=== PATIENT | female | born 1955 | race Caucasian/White ===

== ENCOUNTER 2019-04-12 10:59 | Emergency (ER) | payer MEDICARE, OTHER ==
[~2019-04-12] VITALS: Ht 157.5 cm; Wt 80.0 kg
[~2019-04-12 10:59] MED LIST: AMANTADINE100 MG PO; ASPIRIN EC81 MG PO; ASPIRIN LOW DOS81 M1 PO; AUGMENTIN500TAB PO; CIPRO500 MG PO; CIPROFLOXACIN250 MG PO; ESTRACE VAG0.1 MG/GM VA; FISH OIL500 MG PO; MEDDOSEPAK PO; MULTI VIT PO; NITROFURANTN100 M1 PO; NO; PLAVIX75 MG PO; PRILOSEC20 MG PO; PROTONIX40 M2 PO; REGLAN10 MG PO; ZANTAC 75 PO; ZPAK PO
[2019-04-12] MEDS ORDERED: PROTONIX40 M2 PO (11:32)
[2019-04-12] MEDS ORDERED: CYCLOBENZAPR5 MG PO (12:21)
[2019-04-12] MEDS ORDERED: VOLTAREN1%GEL TOP (12:21)
[2019-04-12 12:40] VITALS: BP 158/71
== END 2019-04-12 12:40 | disposition home or self-care (01) ==
LOC: ED 10:59
DX: M62.830 Muscle spasm of back (principal)

== ENCOUNTER 2019-07-22 | Emergency (ER) | payer MEDICARE, OTHER ==
[~2019-07-22] MED LIST changes: +CYCLOBENZAPR5 MG PO; +VOLTAREN1%GEL TOP
== END 2019-07-22 13:20 | disposition home or self-care (01) ==
DX: S92.512A Displaced fracture of proximal phalanx of left lesser toe(s), initial encounter for closed fracture (principal); S90.32XA Contusion of left foot, initial encounter; S90.02XA Contusion of left ankle, initial encounter; W22.8XXA Striking against or struck by other objects, initial encounter

== ENCOUNTER 2019-09-16 | Emergency (ER) | payer MEDICARE, OTHER ==
[2019-09-16] MEDS ORDERED: ASPIRIN 81 LOW81 MG PO (18:11)
[2019-09-16] MEDS ORDERED: ONDANSETRON4 MG PO (18:54)
== END 2019-09-16 19:34 | disposition home or self-care (01) ==
DX: Z03.89 Encounter for observation for other suspected diseases and conditions ruled out (principal); I10 Essential (primary) hypertension

== ENCOUNTER 2020-05-31 10:01 | Emergency (ER) | payer MEDICARE, OTHER ==
[~2020-05-31] VITALS: Ht 157.5 cm; Wt 86.4 kg
[~2020-05-31 10:01] MED LIST changes: +ASPIRIN 81 LOW81 MG PO; +ONDANSETRON4 MG PO
[2020-05-31] MEDS ORDERED: PROZAC20 MG PO (10:46)
[2020-05-31] MEDS ORDERED: HEART RATE MED (10:47)
[2020-05-31 12:04] VITALS: BP 176/82
== END 2020-05-31 12:10 | disposition home or self-care (01) ==
LOC: ED 10:01
DX: S93.401A Sprain of unspecified ligament of right ankle, initial encounter (principal); I10 Essential (primary) hypertension; X58.XXXA Exposure to other specified factors, initial encounter

== ENCOUNTER 2022-07-28 11:50 | Observation (INO) | payer MEDICARE, OTHER ==
[2022-07-28] VITALS (11 sets, daily range): BP systolic 122–161; BP diastolic 68–91
[~2022-07-28] VITALS: Ht 157.5 cm; Wt 87.0 kg
[~2022-07-28 11:50] MED LIST changes: +HEART RATE MED; +PROZAC20 MG PO
[2022-07-28 12:29] LABS: BASO% 0.3 % (0-3); EOS% 1.8 % (0-8); HEMATOCRIT 42.1 % (37.0-47.0); HEMOGLOBIN 14.1 g/dl (12.0-16.0); IMMATURE GRANULOCYTES 0.4 % (0.0-5.0); LYMPH% 48.9 % (15-41); MEAN CELL VOLUME 94.6 fL CALC (80.0-100.0); MEAN CORPUSCULAR HGB 31.7 pG CALC (26.0-32.0); MEAN CORPUSCULAR HGB CONC 33.5 g/dL CAL (32.0-36.0); MONO% 6.8 % (2-13); NEUT# 4.02 thou/uL (2.00-7.15); NEUT% 41.8 % (42-76); RED BLOOD COUNT 4.45 mill/uL (4.20-5.60); RED CELL DISTRI WIDTH 13.7 % (11.5-15.5)
[2022-07-28] MEDS ORDERED: NORVASC5 M1 PO (12:56)
[2022-07-28 13:24] LABS: ALBUMIN 4.8 g/dL (3.2-5.0); ALKALINE PHOSPHATASE 101 u/l (38-126); ANION GAP 11 (6-22 (CALC)); BILIRUBIN, TOTAL 0.3 mg/dL (0.0-1.4); BUN 12 mg/dL (8-23); BUN/CREATININE RATIO 17 (12-20 (CALC)); CARBON DIOXIDE 28 mmol/l (22-30); CHLORIDE 105 mmol/l (95-108); CREATININE 0.7 mg/dL (0.5-1.0); GFR FOR AFR.AMER. > 60 ML/MIN (>=60 (CALC)); GFR OTHER RACES > 60 ML/MIN (>=60 (CALC)); SGOT/AST 35 u/l (9-36); SODIUM 139 mmol/l (137-146)
[2022-07-28 13:25] LABS: TOTAL PROTEIN 8.4 g/dL (6.3-8.2)
[2022-07-29 04:02] VITALS: BP 134/63
[2022-07-29 06:55] VITALS: BP 118/64
[2022-07-29 10:11] VITALS: BP 127/60
== END 2022-07-29 11:45 | disposition home or self-care (01) ==
LOC: ED 11:50 → ED-I 12:50 → ED 12:50 → ED-I 13:40 → ED 13:57 → MS2 13:58
PROVIDERS: Family Medicine; ADMIT Internal Medicine; ATTEND Internal Medicine
DX: R55 Syncope and collapse (principal); R20.0 Anesthesia of skin; R42 Dizziness and giddiness; I10 Essential (primary) hypertension; K22.70 Barrett's esophagus without dysplasia; Z86.73 Personal history of transient ischemic attack (TIA), and cerebral infarction without residual deficits
CPT/HCPCS: J1650

== ENCOUNTER 2022-09-26 18:30 | Emergency (ER) | payer MEDICARE, OTHER ==
[2022-09-26] VITALS (7 sets, daily range): BP systolic 141–165; BP diastolic 72–105
[~2022-09-26] VITALS: Ht 157.5 cm; Wt 86.3 kg
[~2022-09-26 18:30] MED LIST changes: +NORVASC5 M1 PO
[2022-09-26 19:49] LABS: URINE BILIRUBIN - DIPSTICK NEGATIVE (NEGATIVE); URINE BLOOD DIPSTICK SMALL (NEGATIVE); URINE COLOR YELLOW; URINE GLUCOSE - DIPSTICK NEGATIVE (NEGATIVE); URINE KETONE NEGATIVE (NEGATIVE); URINE LEUK ESTERASE NEGATIVE (NEGATIVE); URINE PH 7.5 (4.5-8.0); URINE PROTEIN - DIPSTICK NEGATIVE (NEG-TRACE); URINE UROBILINOGEN - DIPSTICK 0.2 E.U./dL (0.2)
[2022-09-26 19:50] LABS: BASO% 0.4 % (0-3); EOS% 0.6 % (0-8); HEMATOCRIT 41.7 % (37.0-47.0); HEMOGLOBIN 13.4 g/dl (12.0-16.0); IMMATURE GRANULOCYTES 0.7 % (0.0-5.0); LYMPH% 23.9 % (15-41); MEAN CELL VOLUME 94.3 fL CALC (80.0-100.0); MEAN CORPUSCULAR HGB 30.3 pG CALC (26.0-32.0); MEAN CORPUSCULAR HGB CONC 32.1 g/dL CAL (32.0-36.0); MONO% 6.8 % (2-13); NEUT# 7.7 thou/uL (2.00-7.15); NEUT% 67.6 % (42-76); RED BLOOD COUNT 4.42 mill/uL (4.20-5.60); RED CELL DISTRI WIDTH 13.1 % (11.5-15.5)
[2022-09-26 19:51] LABS: URINE NITRITE - DIPSTICK POSITIVE (Negative)
[2022-09-26 19:55] LABS: URINE BACTERIA MANY hpf; URINE RBC 0-2 RBC/hpf (0-5)
[2022-09-26 20:07] LABS: ALBUMIN 4.9 g/dL (3.2-5.0); ALKALINE PHOSPHATASE 89 u/l (38-126); AMYLASE 47 u/l (30-110); ANION GAP 14 (6-22 (CALC)); BILIRUBIN, TOTAL 0.4 mg/dL (0.02-1.3); BUN 8 mg/dL (8-23); BUN/CREATININE RATIO 12 (12-20 (CALC)); CARBON DIOXIDE 27 mmol/l (22-30); CHLORIDE 100 mmol/l (95-108); CREATININE 0.7 mg/dL (0.5-1.0); GFR FOR AFR.AMER. > 60 ML/MIN (>=60 (CALC)); GFR OTHER RACES > 60 ML/MIN (>=60 (CALC)); LIPASE 79 u/l (23-300); POTASSIUM 4.3 mmol/l (3.5-5.1); SGOT/AST 26 u/l (9-36); SODIUM 137 mmol/l (137-146); TOTAL PROTEIN 7.9 g/dL (6.3-8.2)
[2022-09-26] MEDS ORDERED: AMOX/K CLAV875 M1 PO (22:19)
[2022-09-26] MEDS ORDERED: METRONIDAZOLE500 MG PO (22:19)
== END 2022-09-26 23:03 | disposition home or self-care (01) ==
LOC: ED 18:30
PROVIDERS: Emergency Medicine
DX: K57.32 Diverticulitis of large intestine without perforation or abscess without bleeding (principal); I10 Essential (primary) hypertension; T46.5X6A Underdosing of other antihypertensive drugs, initial encounter; Z91.128 Patient's intentional underdosing of medication regimen for other reason; Z86.73 Personal history of transient ischemic attack (TIA), and cerebral infarction without residual deficits; R82.71 Bacteriuria
CPT/HCPCS: Q9967

== ENCOUNTER 2024-02-26 06:19 | Emergency (ER) | payer MEDICARE, OTHER ==
[2024-02-26] VITALS (12 sets, daily range): BP systolic 160–203; BP diastolic 85–100
[~2024-02-26] VITALS: Ht 157.5 cm; Wt 90.0 kg
[~2024-02-26 06:19] MED LIST changes: +AMOX/K CLAV875 M1 PO; +METRONIDAZOLE500 MG PO
[2024-02-26] MEDS ORDERED: MACRODANTIN100 MG PO (06:34)
[2024-02-26] MEDS ORDERED: KETOROLAC TROMETHAMINE 30 MG/ML SDV IV ONE (06:45)
[2024-02-26] MEDS ORDERED: SODIUM CHLORIDE 0.9% 1,000 ML IV ONE (06:45)
[2024-02-26] MEDS ORDERED: ACETAMINOPHEN 500 MG TAB PO ONE (06:45)
[2024-02-26 07:02] LABS: BASO% 0.4 % (0-3); HEMATOCRIT 42.1 % (37.0-47.0); HEMOGLOBIN 13.7 g/dl (12.0-16.0); IMMATURE GRANULOCYTES 0.1 % (0.0-5.0); LYMPH% 27.5 % (15-41); MEAN CELL VOLUME 94.6 fL CALC (80.0-100.0); MEAN CORPUSCULAR HGB 30.8 pG CALC (26.0-32.0); MEAN CORPUSCULAR HGB CONC 32.5 g/dL CAL (32.0-36.0); MONO% 6.1 % (2-13); NEUT# 7.19 thou/uL (2.00-7.15); NEUT% 64.9 % (42-76); RED BLOOD COUNT 4.45 mill/uL (4.20-5.60); RED CELL DISTRI WIDTH 13.3 % (11.5-15.5)
[2024-02-26 07:17] LABS: ALBUMIN 4.7 g/dL (3.2-5.0); BILIRUBIN, TOTAL 0.6 mg/dL (0.02-1.3); CREATININE 0.7 mg/dL (0.5-1.0); POTASSIUM 3.9 mmol/l (3.5-5.1); TOTAL PROTEIN 8.1 g/dL (6.3-8.2)
[2024-02-26 07:52] LABS: URINE BILIRUBIN - DIPSTICK Negative (NEGATIVE); URINE BLOOD DIPSTICK Small (NEGATIVE); URINE COLOR Yellow; URINE GLUCOSE - DIPSTICK Negative (NEGATIVE); URINE KETONE Negative (NEGATIVE); URINE LEUK ESTERASE Negative (NEGATIVE); URINE NITRITE - DIPSTICK Negative (Negative); URINE PROTEIN - DIPSTICK Negative (NEG-TRACE); URINE UROBILINOGEN - DIPSTICK 0.2 E.U./dL (0.2)
[2024-02-26 08:00] LABS: URINE RBC 0-2 RBC/hpf (0-5)
[2024-02-26] MEDS ORDERED: PAXLOVID PO (08:00)
== END 2024-02-26 08:21 | disposition home or self-care (01) ==
LOC: ED 06:19
PROVIDERS: Family Medicine
DX: U07.1 COVID-19 (principal); R51.9 Headache, unspecified; R52 Pain, unspecified; R53.83 Other fatigue; R50.9 Fever, unspecified; J02.9 Acute pharyngitis, unspecified; H92.09 Otalgia, unspecified ear; I10 Essential (primary) hypertension; Z86.73 Personal history of transient ischemic attack (TIA), and cerebral infarction without residual deficits